=== PATIENT | female | born 1985 ===

== ENCOUNTER 2017-11-05 22:16 | Emergency (ER) | payer SELFPAY ==
--- NOTE | 2017-11-05 22:57 | ED PDOC ---
HPI: Psych/Substance Abuse Time Seen by Provider: 11/05/17 22:33 Chief Complaint (Nursing): Alcohol Ingestion Chief Complaint (Provider): Alcohol Ingestion History Per: EMS History/Exam Limitations: intoxication Onset/Duration Of Symptoms: Mins Current Symptoms Are (Timing): Still Present Additional Complaint(s): 32 year old female presents to the ED via EMS for public intoxication that began prior to arrival. Upon arrival to the ED patient was uncooperative and not answering questions appropriately.Patient was found wondering in public when EMS was alerted after patient attempted to enter car belonging to another person. Patient is under high risk for elopement. PMD: None Past Medical History Reviewed: Historical Data, Nursing Documentation, Vital Signs, Unable To Obtain (unable to obtain appropriate information due to intoxication levels) Vital Signs: Last Vital Signs Temp 97.8 F 11/05/17 22:24 Pulse 100 H 11/05/17 22:24 Resp 18 11/05/17 22:24 BP 134/80 11/05/17 22:24 Pulse Ox 99 11/05/17 22:24 - Family History Family History: States: Unknown Family Hx - Allergies Allergies/Adverse Reactions: Allergies Allergy/AdvReac Type Severity Reaction Status Date / Time No Known Allergies Allergy Verified 11/05/17 22:24 Review of Systems ROS Statement: Except As Marked, All Systems Reviewed And Found Negative Neurological: Positive for: Change in Speech (Slurred Speech ) Physical Exam - Reviewed Nursing Documentation Reviewed: Yes Vital Signs Reviewed: Yes - Physical Exam Appears: Positive for: Non-toxic, No Acute Distress Head Exam: Positive for: ATRAUMATIC, NORMOCEPHALIC Skin: Positive for: Normal Color, Warm, Dry Eye Exam: Positive for: EOMI, Normal appearance, PERRL Neck: Positive for: Normal, Painless ROM, Supple Cardiovascular/Chest: Positive for: Regular Rate, Rhythm. Negative for: Murmur Respiratory: Positive for: Normal Breath Sounds. Negative for: Respiratory Distress Gastrointestinal/Abdominal: Positive for: Normal Exam, Soft. Negative for: Tenderness Back: Positive for: Normal Inspection. Negative for: L CVA Tenderness, R CVA Tenderness, Vertebral Tenderness Extremity: Positive for: Normal ROM. Negative for: Pedal Edema, Deformity Neurologic/Psych: Positive for: Alert, Oriented, Gait (Steady ). Negative for: Motor/Sensory Deficits - Laboratory Results Result Diagrams: 11/05/17 23:00 04/07/18 23:00 - ECG O2 Sat by Pulse Oximetry: 99 (RA) Pulse Ox Interpretation: Normal Medical Decision Making Medical Decision Making: Time: 2234 Initial Impression: Intoxicated Female Initial Plan: -- Alcohol Serum -- CMP -- Drug Screen -- ED Urine -- CBC with differentials -- 1:1 Observation CONT -- Accucheck -- Restraint: Violent or harm to self/other As Ordered Time: 5:37 --Patient is speaking clearly with a steady gait. He is clinically sober and stable for discharge home. Scribe Attestation: Documented by Barbara Camargo, acting as a scribe for Dr. Peewee Burns MD. Provider Scribe Attestation: All medical record entries made by the Scribe were at my direction and personally dictated by me. I have reviewed the chart and agree that the record accurately reflects my personal performance of the history, physical exam, medical decision making, and the department course for this patient. I have also personally directed, reviewed, and agree with the discharge instructions and disposition. Disposition - Clinical Impression Clinical Impression: Alcohol abuse with intoxication - Patient ED Disposition Is Patient to be Admitted: No Counseled Patient/Family Regarding: Studies Performed, Diagnosis, Need For Followup - Disposition Disposition: Routine/Home Disposition Time: 05:35 Condition: STABLE Instructions: Alcohol Use - When Is Drinking a Problem? Forms: [employer] (Guinean)
[2017-11-05 23:32] LABS: BASO # 0.1 K/uL (0.0-0.2); BASO % 0.5 % (0.0-2.0); EOS # 0.3 K/uL (0.0-0.7); EOS % 2.9 % (0.0-4.0); HEMOGLOBIN 13.9 g/dL (12.0-16.0); LYMPH # 4.1 K/uL (1.0-4.3); LYMPH % 38.6 % (20.0-40.0); MEAN CELL VOLUME 92.9 fl (81.0-99.0); MEAN CORPUSCULAR HEMOGLOBIN 30.8 pg (27.0-31.0); MEAN CORPUSCULAR HGB CONC 33.1 g/dL (33.0-37.0); MEAN PLATELET VOLUME 9.4 fl (7.2-11.7); MONO # 0.5 K/uL (0.0-0.8); MONO % 4.9 % (0.0-10.0); NEUT # 5.6 K/uL (1.8-7.0); NEUT % 53.1 % (50.0-75.0); RBC 4.52 Mil/uL (3.80-5.20); RED CELL DISTRIBUTION WIDTH 14.1 % (11.5-14.5); WHITE BLOOD COUNT 10.5 K/uL (4.8-10.8)
[2017-11-05 23:54] LABS: BARBITURATES, UR NEGATIVE (NEGATIVE); BENZODIAZEPINES, UR NEGATIVE (NEGATIVE); OPIATES, UR NEGATIVE (NEGATIVE); PHENCYCLIDINE, UR NEGATIVE (NEGATIVE)
[2017-11-05 23:56] LABS: ALB/GLOB RATIO 1.2 (1.0-2.1); ALBUMIN 4.3 g/dL (3.5-5.0); ALT/SGPT 42 U/L (9-52); AST/SGOT 39 U/L (14-36); BLOOD UREA NITROGEN 10 mg/dl (7-17); CALCIUM 8.9 mg/dL (8.4-10.2); GFR AFRICAN-AMERICAN > 60; GFR NON-AFRICAN AMERICAN > 60
[2017-11-06 05:53] VITALS: BP 119/71; PULSE 84; RESP 16; TEMP 97.9
[2017-11-08 03:33] VITALS: O2SAT 99
== END 2017-11-06 06:41 | disposition home or self-care (01) ==
LOC: H.ER 22:16
DX: F10.129 Alcohol abuse with intoxication, unspecified (principal)
CPT/HCPCS: 80053; 81025; 85025; 96372; 99282; G0480; J1630; J2060

== ENCOUNTER 2018-01-01 18:08 | Emergency (ER) | payer SELFPAY ==
[2018-01-01 18:21] VITALS: RESP 18; TEMP 98.4; O2SAT 99
--- NOTE | 2018-01-01 20:49 | ED PDOC ---
HPI: Psych/Substance Abuse Time Seen by Provider: 01/01/18 19:26 Chief Complaint (Nursing): Alcohol Ingestion Chief Complaint (Provider): Alcohol Ingestion ED Caveat: Intoxicated History/Exam Limitations: intoxication Current Symptoms Are (Timing): Still Present Additional Complaint(s): 32 y/o female brought in by EMS due to alcohol intoxication. Unable to obtain history secondary to intoxication. Past Medical History Reviewed: Historical Data, Nursing Documentation, Vital Signs, Unable To Obtain Vital Signs: Last Vital Signs Temp 98.4 F 01/01/18 18:18 Pulse 100 H 01/01/18 18:18 Resp 18 01/01/18 18:18 BP 139/86 01/01/18 18:18 Pulse Ox 99 01/01/18 18:18 - Family History Family History: States: Unknown Family Hx - Allergies Allergies/Adverse Reactions: Allergies Allergy/AdvReac Type Severity Reaction Status Date / Time No Known Allergies Allergy Verified 11/05/17 22:24 Review of Systems Review Of Systems: ROS cannot be obtained secondary to pt's inabilty to answer questions. Physical Exam - Reviewed Nursing Documentation Reviewed: Yes Vital Signs Reviewed: Yes - Physical Exam Appears: Positive for: Non-toxic, No Acute Distress (very intoxicated appearing , no signs of trauma) Head Exam: Positive for: ATRAUMATIC, NORMAL INSPECTION, NORMOCEPHALIC Skin: Positive for: Normal Color, Warm, Dry. Negative for: Rash Eye Exam: Positive for: EOMI, Normal appearance, PERRL Neck: Positive for: Normal, Painless ROM, Supple Cardiovascular/Chest: Positive for: Regular Rate, Rhythm. Negative for: Murmur Respiratory: Positive for: Normal Breath Sounds. Negative for: Respiratory Distress Gastrointestinal/Abdominal: Positive for: Normal Exam, Soft. Negative for: Tenderness Back: Positive for: Normal Inspection. Negative for: L CVA Tenderness, R CVA Tenderness, Vertebral Tenderness Extremity: Positive for: Normal ROM. Negative for: Pedal Edema, Deformity Neurologic/Psych: Positive for: Alert, Oriented. Negative for: Motor/Sensory Deficits - ECG O2 Sat by Pulse Oximetry: 99 (RA) Pulse Ox Interpretation: Normal Medical Decision Making Medical Decision Makin:08 A/P: 32 y/o brought in for alcohol intoxication with stable vitals and no signs of trauma. Will observe for intoxication. 945PM Patient now awake, alert, steady gait, normal vitals. Safe for discharge. Scribe Attestation: Documented by Erick Abernathy, acting as a scribe for Perfecto Samson MD. Provider Scribe Attestation: All medical record entries made by the Scribe were at my direction and personally dictated by me. I have reviewed the chart and agree that the record accurately reflects my personal performance of the history, physical exam, medical decision making, and the department course for this patient. I have also personally directed, reviewed, and agree with the discharge instructions and disposition. Disposition - Clinical Impression Clinical Impression: Alcohol abuse - Patient ED Disposition Is Patient to be Admitted: No - Disposition Referrals: Alcoholics Anonymous [Outside] Disposition: Routine/Home Disposition Time: 21:47 Condition: STABLE Instructions: Alcohol Abuse and Alcoholism (DC) Forms: [employer] (Slovenian)
[2018-01-01 22:33] VITALS: BP 122/80; PULSE 87
== END 2018-01-01 22:05 | disposition home or self-care (01) ==
LOC: H.ER 18:08
DX: F10.129 Alcohol abuse with intoxication, unspecified (principal)
CPT/HCPCS: 81025; 82948; 99283; G0480

== ENCOUNTER 2018-01-27 13:19 | Emergency (ER) | payer OTHER ==
[2018-01-27 13:26] VITALS: TEMP 98.6
[2018-01-27 13:27] VITALS: BMI 20.1
--- NOTE | 2018-01-27 13:46 | ED PDOC ---
HPI: Psych/Substance Abuse Time Seen by Provider: 01/27/18 13:43 Chief Complaint (Nursing): Psychiatric Evaluation Chief Complaint (Provider): psychiatric evaluation History Per: Patient, EMS History/Exam Limitations: no limitations Onset/Duration Of Symptoms: Hrs ([employer]) Suicide/Self Injury Attempted (Context): None Associated Symptoms: denies: Suicidal Thoughts, Suicidal Plan Involuntary Hold By: None Additional Complaint(s): Veronique Rosen is a 32 year old female, with no significant past medical history, who was brought to the emergency department via EMS for crisis evaluation. Patient reports she was at her dentist's office, she was late for her appointment and was pounding on the door. Police was called and she was brought here for evaluation. As per police, patient was displaying erratic behavior. Patient states her phone is and is unable to contact family members. She denies any suicidal or homicidal ideation. No other physical complaints. Of note patient has been previously seen here for ETOH abuse. PMD: None provided. Past Medical History Reviewed: Historical Data, Vital Signs Vital Signs: Last Vital Signs Temp 98.6 F 01/27/18 13:26 Pulse 118 H 01/27/18 13:26 Resp 18 01/27/18 13:26 BP 141/100 H 01/27/18 13:26 Pulse Ox 97 01/27/18 13:26 - Medical History PMH: No Chronic Diseases - Surgical History Surgical History: No Surg Hx - Family History Family History: States: Unknown Family Hx - Social History Current smoker - smoking cessation education provided: Yes (light smoker <10 cigarettes daily) Alcohol: > 2 Drinks/Day Drugs: Denies - Allergies Allergies/Adverse Reactions: Allergies Allergy/AdvReac Type Severity Reaction Status Date / Time No Known Allergies Allergy Verified 11/05/17 22:24 Review of Systems ROS Statement: Except As Marked, All Systems Reviewed And Found Negative Psych: Negative for: Suicidal ideation (or homicidal ideation) Physical Exam - Reviewed Nursing Documentation Reviewed: Yes Vital Signs Reviewed: Yes - Physical Exam Appears: Positive for: Non-toxic, No Acute Distress Head Exam: Positive for: ATRAUMATIC, NORMOCEPHALIC Skin: Positive for: Normal Color, Warm, Dry Eye Exam: Positive for: Normal appearance, EOMI, PERRL Neck: Positive for: Painless ROM Cardiovascular/Chest: Positive for: Regular Rate, Rhythm. Negative for: Murmur Respiratory: Positive for: Normal Breath Sounds. Negative for: Respiratory Distress Gastrointestinal/Abdominal: Positive for: Normal Exam, Soft. Negative for: Tenderness Back: Positive for: Normal Inspection. Negative for: L CVA Tenderness, R CVA Tenderness, Vertebral Tenderness Extremity: Positive for: Normal ROM (upper and lower extremities). Negative for : Deformity, Swelling Neurologic/Psych: Positive for: Alert, Oriented. Negative for: Motor/Sensory Deficits - Laboratory Results Result Diagrams: 01/27/18 14:00 01/27/18 14:00 Urine POC: Negative - ECG O2 Sat by Pulse Oximetry: 97 (RA) Pulse Ox Interpretation: Normal - Progress ED Course And Treament: PATIENT NOTED INCREASINGLY MORE SOBER IN ED. STEADY GAIT AND COOPERATIVE TOWARDS END OF STAY. Medical Decision Making Medical Decision Making: Time: Initial Impression: psych evaluation Initial Plan: --Alcohol serum --BMP --Drug screen, urine --Urine --CBC w/ differential --Urinalysis --Reevaluation Scribe Attestation: Documented by Feliberto Schuler, acting as a scribe for Ruby Patel PA-C Provider Scribe Attestation: All medical record entries made by the Scribe were at my direction and personally dictated by me. I have reviewed the chart and agree that the record accurately reflects my personal performance of the history, physical exam, medical decision making, and the department course for this patient. I have also personally directed, reviewed, and agree with the discharge instructions and disposition. Disposition - Clinical Impression Clinical Impression: Alcohol intoxication - Patient ED Disposition Is Patient to be Admitted: No - Disposition Referrals: [facility] [Outside] Disposition: Routine/Home Disposition Time: 17:30 Condition: IMPROVED Instructions: Alcohol Abuse and Alcoholism (DC) Forms: [employer] (Bengali)
[2018-01-27 14:10] LABS: BASO # 0.1 K/uL (0.0-0.2); BASO % 0.6 % (0.0-2.0); EOS # 0.2 K/uL (0.0-0.7); EOS % 1.1 % (0.0-4.0); HEMOGLOBIN 13.5 g/dL (12.0-16.0); LYMPH # 3.1 K/uL (1.0-4.3); LYMPH % 21.4 % (20.0-40.0); MEAN CELL VOLUME 95.6 fl (81.0-99.0); MEAN CORPUSCULAR HEMOGLOBIN 31.8 pg (27.0-31.0); MEAN CORPUSCULAR HGB CONC 33.3 g/dL (33.0-37.0); MEAN PLATELET VOLUME 9.3 fl (7.2-11.7); MONO # 0.9 K/uL (0.0-0.8); MONO % 6.3 % (0.0-10.0); NEUT % 70.6 % (50.0-75.0); NRBC % 0.1 % (0.0-0.0); RBC 4.25 Mil/uL (3.80-5.20); RED CELL DISTRIBUTION WIDTH 15.2 % (11.5-14.5); WHITE BLOOD COUNT 14.3 K/uL (4.8-10.8)
[2018-01-27 14:19] LABS: BLOOD UREA NITROGEN 10 mg/dl (7-17); CALCIUM 8.6 mg/dL (8.4-10.2); GFR AFRICAN-AMERICAN > 60; GFR NON-AFRICAN AMERICAN > 60
[2018-01-27 14:46] LABS: BARBITURATES, UR NEGATIVE (NEGATIVE); BENZODIAZEPINES, UR NEGATIVE (NEGATIVE)
[2018-01-27 14:47] LABS: OPIATES, UR NEGATIVE (NEGATIVE); PHENCYCLIDINE, UR NEGATIVE (NEGATIVE)
[2018-01-27 15:02] LABS: URINE COLOR YELLOW (YELLOW)
[2018-01-27 15:03] LABS: URINE BILIRUBIN NEGATIVE (NEGATIVE); URINE BLOOD NEGATIVE (NEGATIVE); URINE CLARITY SLIGHT-CLOUDY (Clear); URINE GLUCOSE (UA) NEG (Normal); URINE LEUKOCYTE ESTERASE NEG Leu/uL (Negative); URINE PROTEIN NEGATIVE (NEGATIVE); URINE UROBILINOGEN 0.2-1.0 mg/dL (0.2-1.0)
[2018-01-27 15:04] LABS: SQUAMOUS EPITHIAL 16 /hpf (0-5); URINE BACTERIA RARE (<OCC)
[2018-01-27 17:19] VITALS: BP 138/78; PULSE 89; RESP 17
[2018-01-27 23:43] VITALS: O2SAT 97
== END 2018-01-27 17:18 | disposition home or self-care (01) ==
LOC: H.ER 13:19
DX: F10.129 Alcohol abuse with intoxication, unspecified (principal)